=== PATIENT | male | born 1985 | race Caucasian/White ===

== ENCOUNTER 2017-09-08 13:31 | Emergency (ER) | payer OTHER ==
[~2017-09-08] VITALS: Ht 170.2 cm; Wt 65.8 kg
[~2017-09-08 13:31] MED LIST: ALBU90OI INH; CEPH500 PO; CIPRO500 MG PO; CLON.1 PO; CODGUAEL PO; CYCL10 PO; Crutch1 EACH MISC; HYDACE10B PO; HYDACE5 PO; Naprosyn500 MG PO; Norco 10-325 T1 EACH PO; OMEP20ER PO; OXYACE5T PO; OXYACE7.5T PO; PRED10 PO; RXCEPH500 PO; RXOXYACE PO; Ultram50 MG PO
[2017-09-08] MEDS ORDERED: Norco 5-325 Ta1 EACH PO (15:00)
[2017-09-08] MEDS ORDERED: Lotrimin Ultra12 GM TOP (15:00)
[2018-07-04] MEDS ORDERED: CLOTRIMAZOLE AF TOP (00:15)
== END 2017-09-08 15:45 | disposition home or self-care (01) ==
LOC: ER 13:31
DX: T33.832A Superficial frostbite of left toe(s), initial encounter (principal); T33.831A Superficial frostbite of right toe(s), initial encounter; X31.XXXA Exposure to excessive natural cold, initial encounter; F17.200 Nicotine dependence, unspecified, uncomplicated
CPT/HCPCS: 73630; 99283

== ENCOUNTER 2017-09-16 16:27 | Emergency (ER) | payer OTHER ==
[~2017-09-16] VITALS: Ht 170.2 cm; Wt 65.8 kg
[~2017-09-16 16:27] MED LIST changes: +Lotrimin Ultra12 GM TOP; +Norco 5-325 Ta1 EACH PO
[2017-09-16] MEDS ORDERED: Lotrimin Ultra12 GM EXT (18:56)
[2017-09-16] MEDS ORDERED: NAPR550 PO (18:56)
[2017-09-16] MEDS ORDERED: Crutch1 EACH MISC (19:20)
[2018-07-04] MEDS ORDERED: CLOTRIMAZOLE AF TOP (00:15)
== END 2017-09-16 19:15 | disposition home or self-care (01) ==
LOC: ER 16:27
DX: B35.3 Tinea pedis (principal); M79.672 Pain in left foot; M79.671 Pain in right foot; Z79.899 Other long term (current) drug therapy; F17.200 Nicotine dependence, unspecified, uncomplicated
CPT/HCPCS: 99283

== ENCOUNTER 2018-03-26 09:03 | Emergency (ER) | payer OTHER ==
[~2018-03-26] VITALS: Ht 170.2 cm; Wt 63.5 kg
[~2018-03-26 09:03] MED LIST changes: +Lotrimin Ultra12 GM EXT; +NAPR550 PO
[2018-03-26] MEDS ORDERED: Vibramycin100 MG PO (09:15)
== END 2018-03-26 09:48 | disposition home or self-care (01) ==
LOC: ER 09:03
DX: S70.361A Insect bite (nonvenomous), right thigh, initial encounter (principal); W57.XXXA Bitten or stung by nonvenomous insect and other nonvenomous arthropods, initial encounter; Z79.2 Long term (current) use of antibiotics; F17.200 Nicotine dependence, unspecified, uncomplicated
CPT/HCPCS: 99281

== ENCOUNTER 2019-07-23 05:29 | Emergency (ER) | payer OTHER ==
[~2019-07-23] VITALS: Ht 170.2 cm; Wt 65.8 kg
[~2019-07-23 05:29] MED LIST changes: +CLOTRIMAZOLE AF TOP; +Vibramycin100 MG PO
== END 2019-07-23 07:19 | disposition home or self-care (01) ==
LOC: ER 05:29
DX: S01.81XA Laceration without foreign body of other part of head, initial encounter (principal); W22.8XXA Striking against or struck by other objects, initial encounter
CPT/HCPCS: 12011; 70450; 90471; 90714; 99283-25

== ENCOUNTER 2020-12-19 11:55 | Emergency (ER) | payer OTHER ==
[~2020-12-19] VITALS: Ht 170.2 cm; Wt 72.6 kg
== END 2020-12-19 12:21 | disposition home or self-care (01) ==
LOC: ER 11:55
DX: L98.8 Other specified disorders of the skin and subcutaneous tissue (principal); F17.210 Nicotine dependence, cigarettes, uncomplicated
CPT/HCPCS: 99283

== ENCOUNTER 2021-05-17 11:57 | Observation (INO) | payer OTHER ==
[~2021-05-17] VITALS: Ht 170.2 cm; Wt 66.7 kg
[2021-05-17 14:01] LABS: BASOPHILS ABSOLUTE AUTO 0.05 K/mm3 (0.00-0.23); BASOPHILS PERCENT AUTO 1 % (0-2); EOSINOPHILS ABSOLUTE AUTO 0.13 K/mm3 (0.00-0.68); EOSINOPHILS PERCENT AUTO 2 % (0-6); Hematocrit 43.4 % (37.0-53.0); Hemoglobin 14.9 g/dL (13.5-17.5); IMMATURE GRAN ABSOLUTE AUTO 0.02 K/mm3 (0.00-0.10); IMMATURE GRAN PERCENT AUTO 0 % (0-1); LYMPHOCYTES ABSOLUTE AUTO 1.72 K/mm3 (0.84-5.20); LYMPHOCYTES PERCENT AUTO 23 % (21-46); MONOCYTES ABSOLUTE AUTO 0.51 K/mm3 (0.16-1.47); MONOCYTES PERCENT AUTO 7 % (4-13); Mean Corpuscular HGB 30.3 pg (26.0-34.0); Mean Corpuscular HGB Conc 34.3 g/dL (31.5-36.5); Mean Corpuscular Volume 88 fL (80-100); Mean Platelet Volume 8.4 fL (9.1-12.4); NEUTROPHILS ABSOLUTE AUTO 5.14 K/mm3 (1.96-9.15); NEUTROPHILS PERCENT AUTO 68 % (41-73); Platelet Count 341 K/mm3 (150-400); RDW Coefficient Variation 12.1 % (11.7-14.2); RDW Standard Deviation 39.4 fL (35.1-46.3); Red Blood Cell Count 4.92 M/mm3 (4.30-5.90); White Blood Cell Count 7.57 K/mm3 (4.00-11.30)
[2021-05-17 14:25] LABS: International Normalized Ratio 1.11; Prothrombin Time Results 11.9 Sec (9.7-11.5)
[2021-05-17 14:31] LABS: Alanine Aminotransfer (ALT/SGP 18 U/L (12-78); Albumin, Blood 3.2 g/dL (3.4-5.0); Albumin/Globulin Ratio 0.8 (0.8-1.8); Alk Phos 91 U/L (50-136); Anion Gap 5 mmol/L (6-16); Aspartate Aminotrans (AST/SGOT 22 U/L (12-37); Bilirubin, Total 0.5 mg/dL (0.1-1.0); Blood Urea Nitrogen 8 mg/dL (8-24); Bun/Creatinine Ratio 9.4 (12.0-20.0); CO2, Blood 30 mmol/L (21-32); Calcium, Blood 8.8 mg/dL (8.5-10.1); Chloride, Blood 100 mmol/L (98-108); Creatinine, Blood 0.85 mg/dL (0.60-1.20); Globulin, Blood 4.2 g/dL (2.2-4.0); Glomerular Filtration Rate >60 (60-); Glucose, Blood 88 mg/dL (70-99); Potassium, Blood 3.5 mmol/L (3.5-5.5); Sodium, Blood 135 mmol/L (136-145); Total Protein, Blood 7.4 g/dL (6.4-8.2)
[2021-05-17] MEDS ORDERED: CARB100ER PO (17:32)
[2021-05-17] MEDS ORDERED: SYNTHROID75 MCG PO (17:33)
[2021-05-17 18:58] LABS: SARS-Cov-2 (COVID-19) PCR, MMC NEGATIVE (NEGATIVE)
[2021-05-18 05:08] LABS: Alanine Aminotransfer (ALT/SGP 46 U/L (12-78); Albumin, Blood 3.1 g/dL (3.4-5.0); Albumin/Globulin Ratio 0.8 (0.8-1.8); Alk Phos 151 U/L (50-136); Anion Gap 5 mmol/L (6-16); Aspartate Aminotrans (AST/SGOT 57 U/L (12-37); Bilirubin, Total 0.6 mg/dL (0.1-1.0); Blood Urea Nitrogen 9 mg/dL (8-24); Bun/Creatinine Ratio 11.5 (12.0-20.0); CO2, Blood 30 mmol/L (21-32); Calcium, Blood 8.1 mg/dL (8.5-10.1); Chloride, Blood 101 mmol/L (98-108); Creatinine, Blood 0.79 mg/dL (0.60-1.20); Globulin, Blood 3.8 g/dL (2.2-4.0); Glomerular Filtration Rate >60 (60-); Glucose, Blood 89 mg/dL (70-99); Potassium, Blood 3.2 mmol/L (3.5-5.5); Sodium, Blood 136 mmol/L (136-145); Total Protein, Blood 6.9 g/dL (6.4-8.2)
--- NOTE | 2021-05-18 05:43 | NUR ---
PT IS ALERT AND ORIENTED X4, PAIN 9/10 TREATED PER EMAR THIS SHIFT, NPO OF MIDNIGHT AND NOT ABLE TO BEAR WEIGHT ON R LEG, NO OTHER COMPLAINTS NOTED. STAFF WILL CONT TO MONITOR.
--- NOTE | 2021-05-18 09:41 | NUR ---
DR SOUZA IN TO SEE PT THIS AM, NO ORDERS FOR CARDIOLOGY NOTED. HE REPORTS PT NEEDS A CT PE STUDY TO R/O PE DUE TO DVT. SPOKE WITH DR THOMPSON WHO REPORTS HE DOES NOT WANT A CARDIOLOGY CONSULT PT SEEING INTERVENTIONAL RADIOLOGY AND GOING FOR A THROMBECTOMY THIS AM. PER DR THOMPSON NO CT PE STUDY OR EKG. ALSO SPOKE WITH [facility] [place] WHO SPOKE WITH DR SY WHO ALSO REPORTS HE DID NOT CONSULT CARDIOLOGY. DR SOUZA NOTIFIED OF NO CARDIOLOGY CONSULT.
--- NOTE | 2021-05-18 17:48 | NUR ---
PT REMAINS ON HEP DRIP. THROMBECTOMY RESCHEDULED DUE TO SIZE. PT TOLERATING FOOD. COMPLAINS OF PAIN TO RIGHT LEG, MEDICATED PER EMAR. CALL LIGHT WITHIN REACH.
[2021-05-19 08:22] LABS: Anion Gap 5 mmol/L (6-16); Blood Urea Nitrogen 7 mg/dL (8-24); CO2, Blood 30 mmol/L (21-32); Calcium, Blood 8.5 mg/dL (8.5-10.1); Chloride, Blood 100 mmol/L (98-108); Creatinine, Blood 0.78 mg/dL (0.60-1.20); Glomerular Filtration Rate >60 (60-); Glucose, Blood 75 mg/dL (70-99); Potassium, Blood 3.3 mmol/L (3.5-5.5); Sodium, Blood 135 mmol/L (136-145)
[2021-05-19] MEDS ORDERED: ELIQUIS5 M2 PO ×2 (10:28→11:13)
[2021-05-19] MEDS ORDERED: HYDACE10B PO (10:29)
--- NOTE | 2021-05-19 13:43 | NUR ---
PT DISCHARGED THE PT VERBALIZED UNDERSTANDING OF THE DC INSTRUCTIONS. THE PTS WAS HANDED A PRESCRIPTION FOR [place] AND A VOUCHER FOR ELIQUIS TO TAKE TO [facility]. THE PT WAS REMINDED TO FOLLOW UP ON FRIDAY WITH HIS PCP. THE PT WAS TRANSFERED VIA WHEELCHAIR TO THE FRONT TO MEET HIS RIDE ACOMPANIED BY THE QUALITY CONTROL MICROBIOLOGY SUPERVISOR
== END 2021-05-19 13:05 | disposition home or self-care (01) ==
LOC: ER 11:57 → MEDS 11:58 → ERHOLD 11:58 → MEDS 11:59 → ER 17:06 → ERHOLD 17:06 → MEDS 17:06 → ERHOLD 21:00 → MEDS 21:00
PROVIDERS: Internal Medicine; Physician Assistant; ADMIT Hospitalist
DX: I82.220 Acute embolism and thrombosis of inferior vena cava (principal); I82.411 Acute embolism and thrombosis of right femoral vein; I82.421 Acute embolism and thrombosis of right iliac vein; I82.431 Acute embolism and thrombosis of right popliteal vein; I82.441 Acute embolism and thrombosis of right tibial vein; I82.451 Acute embolism and thrombosis of right peroneal vein; I82.491 Acute embolism and thrombosis of other specified deep vein of right lower extremity; E03.9 Hypothyroidism, unspecified; F39 Unspecified mood [affective] disorder; F17.200 Nicotine dependence, unspecified, uncomplicated; Z20.822 Contact with and (suspected) exposure to COVID-19
CPT/HCPCS: 36415; 71260; 73552; 74177; 76937; 80048; 80053; 84443; 85014; 85018; 85025; 85347; 85610; 85730; 86850; 86900; 86901; 93005; 93010; 93926; 93971; 96365; 96375; 96376; 97110; 97162; 99152; 99153; 99285-25; A9270; C1769; C1887; C1894; J1644; J2250; J2270; J2405; J3010; J7030; J7050; Q9967; U0004

== ENCOUNTER 2022-10-10 06:16 | Emergency (ER) | payer OTHER ==
[~2022-10-10] VITALS: Ht 167.6 cm; Wt 65.8 kg
[~2022-10-10 06:16] MED LIST changes: +CARB100ER PO; +ELIQUIS5 M2 PO; +SYNTHROID75 MCG PO
[2022-10-10] MEDS ORDERED: Lamictal200 MG PO (06:31)
[2022-10-10] MEDS ORDERED: CLON2 PO (06:32)
[2022-10-10] MEDS ORDERED: OLAN2.5 PO (06:32)
== END 2022-10-10 08:30 | disposition home or self-care (01) ==
LOC: ER 06:16
DX: R22.32 Localized swelling, mass and lump, left upper limb (principal); E03.9 Hypothyroidism, unspecified; F17.210 Nicotine dependence, cigarettes, uncomplicated; Z86.718 Personal history of other venous thrombosis and embolism; Z86.711 Personal history of pulmonary embolism
CPT/HCPCS: 36415; 85379; 93971; 99284-25

== ENCOUNTER 2024-10-04 10:11 | Emergency (ER) | payer OTHER ==
[~2024-10-04] VITALS: Ht 170.2 cm; Wt 56.7 kg
[~2024-10-04 10:11] MED LIST changes: +CLON2 PO; +Lamictal200 MG PO; +OLAN2.5 PO
[2024-10-04 10:49] LABS: BASOPHILS ABSOLUTE AUTO 0.03 K/mm3 (0.00-0.23); BASOPHILS PERCENT AUTO 1 % (0-2); EOSINOPHILS PERCENT AUTO 2 % (0-6); Hematocrit 46.5 % (37.0-53.0); IMMATURE GRAN ABSOLUTE AUTO 0.01 K/mm3 (0.00-0.10); IMMATURE GRAN PERCENT AUTO 0 % (0-1); LYMPHOCYTES PERCENT AUTO 36 % (21-46); MONOCYTES ABSOLUTE AUTO 0.32 K/mm3 (0.16-1.47); MONOCYTES PERCENT AUTO 6 % (4-13); Mean Corpuscular HGB 30.1 pg (26.0-34.0); Mean Corpuscular HGB Conc 34.4 g/dL (31.5-36.5); Mean Corpuscular Volume 87 fL (80-100); Mean Platelet Volume 8.7 fL (9.1-12.4); NEUTROPHILS ABSOLUTE AUTO 3.18 K/mm3 (1.96-9.15); NEUTROPHILS PERCENT AUTO 56 % (41-73); Platelet Count 267 K/mm3 (150-400); RDW Coefficient Variation 12.8 % (11.7-14.2); RDW Standard Deviation 40.8 fL (35.1-46.3); Red Blood Cell Count 5.32 M/mm3 (4.30-5.90); White Blood Cell Count 5.64 K/mm3 (4.00-11.30)
[2024-10-04 11:01] LABS: Albumin, Blood 3.6 g/dL (3.4-5.0); Bilirubin, Total 0.3 mg/dL (0.1-1.0); Bun/Creatinine Ratio 8.9 (12.0-20.0); Calcium, Blood 9.2 mg/dL (8.5-10.1); Creatinine, Blood 0.79 mg/dL (0.60-1.20); Globulin, Blood 3.5 g/dL (2.2-4.0); Magnesium, Blood 2.2 mg/dL (1.6-2.4); Potassium, Blood 3.6 mmol/L (3.5-5.5); Total Protein, Blood 7.1 g/dL (6.4-8.2)
[2024-10-04] MEDS ORDERED: Ketorolac Tromethamine 15mg Vial IV ONE (11:45)
[2024-10-04] MEDS ORDERED: Acetaminophen 325 MG TABLET PO ONE (11:50)
[2024-10-04] MEDS ORDERED: IBUP600 PO (12:36)
[2024-10-04 13:45] VITALS: BP 123/95
== END 2024-10-04 13:56 | disposition home or self-care (01) ==
LOC: ER 10:11
PROVIDERS: Student in an Organized Health Care Education/Training Program
DX: T69.1XXA Chilblains, initial encounter (principal); E03.9 Hypothyroidism, unspecified; F17.200 Nicotine dependence, unspecified, uncomplicated; Z59.02 Unsheltered homelessness; Z79.890 Hormone replacement therapy; Z79.899 Other long term (current) drug therapy; X31.XXXA Exposure to excessive natural cold, initial encounter
CPT/HCPCS: 80053; 80320; 83735; 84484; 85025; 93005; 93010; 96374; 99285-25; A9270; J1885

== ENCOUNTER 2024-12-26 19:45 | Emergency (ER) | payer OTHER ==
[~2024-12-26] VITALS: Ht 167.6 cm; Wt 72.6 kg
[~2024-12-26 19:45] MED LIST changes: +IBUP600 PO
[2024-12-26 21:11] LABS: BASOPHILS ABSOLUTE AUTO 0.04 K/mm3 (0.00-0.23); BASOPHILS PERCENT AUTO 1 % (0-2); EOSINOPHILS ABSOLUTE AUTO 0.28 K/mm3 (0.00-0.68); EOSINOPHILS PERCENT AUTO 4 % (0-6); Hematocrit 40.2 % (37.0-53.0); Hemoglobin 13.8 g/dL (13.5-17.5); IMMATURE GRAN ABSOLUTE AUTO 0.04 K/mm3 (0.00-0.10); IMMATURE GRAN PERCENT AUTO 1 % (0-1); LYMPHOCYTES ABSOLUTE AUTO 3.04 K/mm3 (0.84-5.20); LYMPHOCYTES PERCENT AUTO 43 % (21-46); MONOCYTES PERCENT AUTO 7 % (4-13); Mean Corpuscular HGB 30.1 pg (26.0-34.0); Mean Corpuscular HGB Conc 34.3 g/dL (31.5-36.5); Mean Corpuscular Volume 88 fL (80-100); Mean Platelet Volume 8.1 fL (9.1-12.4); NEUTROPHILS ABSOLUTE AUTO 3.22 K/mm3 (1.96-9.15); NEUTROPHILS PERCENT AUTO 45 % (41-73); Platelet Count 292 K/mm3 (150-400); RDW Coefficient Variation 13.4 % (11.7-14.2); RDW Standard Deviation 42.8 fL (35.1-46.3); Red Blood Cell Count 4.59 M/mm3 (4.30-5.90); White Blood Cell Count 7.12 K/mm3 (4.00-11.30)
[2024-12-26 21:35] LABS: Albumin, Blood 3.5 g/dL (3.4-5.0); Albumin/Globulin Ratio 1.1 (0.8-1.8); Bilirubin, Total 0.1 mg/dL (0.1-1.0); Calcium, Blood 8.5 mg/dL (8.5-10.1); Creatinine, Blood 0.62 mg/dL (0.60-1.20); Globulin, Blood 3.1 g/dL (2.2-4.0); Potassium, Blood 3.5 mmol/L (3.5-5.5); Total Protein, Blood 6.6 g/dL (6.4-8.2)
[2024-12-26 22:25] VITALS: BP 121/79
[2024-12-26] MEDS ORDERED: Ketorolac Tromethamine 15mg Vial IV ONE (22:35)
[2024-12-26] MEDS ORDERED: NS 1,000 ML IV SCH ×2 (22:35→22:40)
[2024-12-26] MEDS ORDERED: Gabapentin 300 MG Cap PO ONE (22:40)
[2024-12-27] MEDS ORDERED: IBUP600 PO (00:06)
[2024-12-27] MEDS ORDERED: ACET500 PO (00:06)
== END 2024-12-27 00:14 | disposition home or self-care (01) ==
LOC: ER 19:45
PROVIDERS: Student in an Organized Health Care Education/Training Program
DX: R10.13 Epigastric pain (principal); G62.9 Polyneuropathy, unspecified; E03.9 Hypothyroidism, unspecified; F17.200 Nicotine dependence, unspecified, uncomplicated; Z79.890 Hormone replacement therapy; Z79.899 Other long term (current) drug therapy; Z59.00 Homelessness unspecified
CPT/HCPCS: 71046; 80053; 83690; 84484; 85025; 93005; 93010; 96374; 99285-25; A9270; J1885

== ENCOUNTER 2025-01-19 23:54 | Emergency (ER) | payer OTHER ==
[~2025-01-19] VITALS: Ht 167.6 cm; Wt 54.4 kg
[~2025-01-19 23:54] MED LIST changes: +ACET500 PO
[2025-01-19 23:57] VITALS: BP 128/92
[2025-01-20] MEDS ORDERED: Acetaminophen 500 MG Tab PO ONE (01:30)
== END 2025-01-20 02:28 | disposition home or self-care (01) ==
LOC: ER 23:54
DX: M79.662 Pain in left lower leg (principal); E03.9 Hypothyroidism, unspecified; F17.200 Nicotine dependence, unspecified, uncomplicated; Z79.899 Other long term (current) drug therapy
CPT/HCPCS: 73590; 99283-25; A9270

== ENCOUNTER 2025-03-03 00:47 | Emergency (ER) | payer OTHER ==
[~2025-03-03] VITALS: Ht 165.1 cm; Wt 54.4 kg
[2025-03-03 01:08] LABS: BASOPHILS ABSOLUTE AUTO 0.03 K/mm3 (0.00-0.23); BASOPHILS PERCENT AUTO 1 % (0-2); EOSINOPHILS ABSOLUTE AUTO 0.25 K/mm3 (0.00-0.68); EOSINOPHILS PERCENT AUTO 5 % (0-6); Hematocrit 39.2 % (37.0-53.0); Hemoglobin 12.9 g/dL (13.5-17.5); IMMATURE GRAN ABSOLUTE AUTO 0.01 K/mm3 (0.00-0.10); IMMATURE GRAN PERCENT AUTO 0 % (0-1); LYMPHOCYTES ABSOLUTE AUTO 2.47 K/mm3 (0.84-5.20); LYMPHOCYTES PERCENT AUTO 45 % (21-46); MONOCYTES ABSOLUTE AUTO 0.41 K/mm3 (0.16-1.47); MONOCYTES PERCENT AUTO 7 % (4-13); Mean Corpuscular HGB 30.1 pg (26.0-34.0); Mean Corpuscular HGB Conc 32.9 g/dL (31.5-36.5); Mean Corpuscular Volume 92 fL (80-100); Mean Platelet Volume 8.5 fL (9.1-12.4); NEUTROPHILS ABSOLUTE AUTO 2.35 K/mm3 (1.96-9.15); NEUTROPHILS PERCENT AUTO 43 % (41-73); Platelet Count 226 K/mm3 (150-400); RDW Coefficient Variation 13.5 % (11.7-14.2); RDW Standard Deviation 45.9 fL (35.1-46.3); Red Blood Cell Count 4.28 M/mm3 (4.30-5.90); White Blood Cell Count 5.52 K/mm3 (4.00-11.30)
[2025-03-03 01:26] LABS: Albumin, Blood 3.9 g/dL (3.4-5.0); Albumin/Globulin Ratio 1.5 (0.8-1.8); Bilirubin, Total 0.5 mg/dL (0.1-1.0); Calcium, Blood 8.4 mg/dL (8.5-10.1); Creatinine, Blood 0.72 mg/dL (0.60-1.20); Globulin, Blood 2.6 g/dL (2.2-4.0); Potassium, Blood 3.6 mmol/L (3.5-5.5); Total Protein, Blood 6.5 g/dL (6.4-8.2)
[2025-03-03 02:00] VITALS: BP 118/73
== END 2025-03-03 02:53 | disposition home or self-care (01) ==
LOC: ER 00:47
PROVIDERS: Emergency Medicine
DX: R07.89 Other chest pain (principal); F17.200 Nicotine dependence, unspecified, uncomplicated; E03.9 Hypothyroidism, unspecified; Z79.899 Other long term (current) drug therapy
CPT/HCPCS: 71046; 80053; 84484; 85025; 93005; 93010; 99285-25

== ENCOUNTER 2025-03-14 00:45 | Emergency (ER) | payer OTHER ==
[~2025-03-14] VITALS: Ht 175.3 cm; Wt 54.4 kg
[2025-03-14 00:54] VITALS: BP 109/91
[2025-03-14 01:13] LABS: BASOPHILS ABSOLUTE AUTO 0.04 K/mm3 (0.00-0.23); BASOPHILS PERCENT AUTO 1 % (0-2); EOSINOPHILS ABSOLUTE AUTO 0.23 K/mm3 (0.00-0.68); EOSINOPHILS PERCENT AUTO 4 % (0-6); Hematocrit 41.3 % (37.0-53.0); Hemoglobin 13.7 g/dL (13.5-17.5); IMMATURE GRAN ABSOLUTE AUTO 0.02 K/mm3 (0.00-0.10); IMMATURE GRAN PERCENT AUTO 0 % (0-1); LYMPHOCYTES ABSOLUTE AUTO 2.64 K/mm3 (0.84-5.20); LYMPHOCYTES PERCENT AUTO 45 % (21-46); MONOCYTES ABSOLUTE AUTO 0.37 K/mm3 (0.16-1.47); MONOCYTES PERCENT AUTO 6 % (4-13); Mean Corpuscular HGB Conc 33.2 g/dL (31.5-36.5); Mean Corpuscular Volume 91 fL (80-100); NEUTROPHILS ABSOLUTE AUTO 2.59 K/mm3 (1.96-9.15); NEUTROPHILS PERCENT AUTO 44 % (41-73); NRBC ABSOLUTE 0.00 K/mm3 (0.00-0.02); NRBC Auto 0.0 /100 WBC (0.0-0.2); Platelet Count 239 K/mm3 (150-400); RDW Coefficient Variation 13.4 % (11.7-14.2); RDW Standard Deviation 45.3 fL (35.1-46.3)
[2025-03-14 01:34] LABS: Alanine Aminotransfer (ALT/SGP 21.0 U/L (12-78); Albumin, Blood 3.7 g/dL (3.4-5.0); Albumin/Globulin Ratio 1.2 (0.8-1.8); Anion Gap 7.0 mmol/L (3-11); Aspartate Aminotrans (AST/SGOT 13.0 U/L (12-37); Bilirubin, Total 0.1 mg/dL (0.1-1.0); Blood Urea Nitrogen 17.0 mg/dL (8-24); CO2, Blood 27.0 mmol/L (21-32); Calcium, Blood 8.7 mg/dL (8.5-10.1); Chloride, Blood 111.0 mmol/L (98-108); Creatinine, Blood 0.95 mg/dL (0.60-1.20); Globulin, Blood 3.1 g/dL (2.2-4.0); Glucose, Blood 95.0 mg/dL (70-99); Potassium, Blood 3.8 mmol/L (3.5-5.5); Sodium, Blood 141.0 mmol/L (136-145); Total Protein, Blood 6.8 g/dL (6.4-8.2)
== END 2025-03-14 07:49 | disposition left against medical advice (07) ==
LOC: ER 00:45
PROVIDERS: Emergency Medicine
DX: R06.02 Shortness of breath (principal); R07.9 Chest pain, unspecified; Z53.21 Procedure and treatment not carried out due to patient leaving prior to being seen by health care provider
CPT/HCPCS: 80053; 83690; 84484; 85025

== ENCOUNTER 2025-03-15 22:55 | Emergency (ER) | payer OTHER ==
[~2025-03-15] VITALS: Ht 165.1 cm; Wt 54.4 kg
[2025-03-15 23:08] VITALS: BP 112/80
[2025-03-15 23:22] LABS: BASOPHILS ABSOLUTE AUTO 0.04 K/mm3 (0.00-0.23); BASOPHILS PERCENT AUTO 1 % (0-2); EOSINOPHILS ABSOLUTE AUTO 0.18 K/mm3 (0.00-0.68); EOSINOPHILS PERCENT AUTO 3 % (0-6); Hematocrit 37.1 % (37.0-53.0); Hemoglobin 12.6 g/dL (13.5-17.5); IMMATURE GRAN ABSOLUTE AUTO 0.02 K/mm3 (0.00-0.10); IMMATURE GRAN PERCENT AUTO 0 % (0-1); LYMPHOCYTES ABSOLUTE AUTO 2.74 K/mm3 (0.84-5.20); LYMPHOCYTES PERCENT AUTO 45 % (21-46); MONOCYTES ABSOLUTE AUTO 0.34 K/mm3 (0.16-1.47); MONOCYTES PERCENT AUTO 6 % (4-13); Mean Corpuscular HGB Conc 34.0 g/dL (31.5-36.5); Mean Corpuscular Volume 89 fL (80-100); NEUTROPHILS ABSOLUTE AUTO 2.77 K/mm3 (1.96-9.15); NEUTROPHILS PERCENT AUTO 45 % (41-73); NRBC ABSOLUTE 0.00 K/mm3 (0.00-0.02); NRBC Auto 0.0 /100 WBC (0.0-0.2); Platelet Count 226 K/mm3 (150-400); RDW Coefficient Variation 13.4 % (11.7-14.2); RDW Standard Deviation 44.2 fL (35.1-46.3)
[2025-03-15 23:45] LABS: Alanine Aminotransfer (ALT/SGP 21.0 U/L (12-78); Albumin, Blood 3.7 g/dL (3.4-5.0); Albumin/Globulin Ratio 1.3 (0.8-1.8); Anion Gap 5.0 mmol/L (3-11); Aspartate Aminotrans (AST/SGOT 17.0 U/L (12-37); Bilirubin, Total 0.1 mg/dL (0.1-1.0); Blood Urea Nitrogen 14.0 mg/dL (8-24); CO2, Blood 28.0 mmol/L (21-32); Calcium, Blood 8.4 mg/dL (8.5-10.1); Chloride, Blood 111.0 mmol/L (98-108); Creatinine, Blood 1.11 mg/dL (0.60-1.20); Globulin, Blood 2.9 g/dL (2.2-4.0); Glucose, Blood 100.0 mg/dL (70-99); Potassium, Blood 3.9 mmol/L (3.5-5.5); Sodium, Blood 140.0 mmol/L (136-145); Total Protein, Blood 6.6 g/dL (6.4-8.2)
== END 2025-03-16 00:49 | disposition home or self-care (01) ==
LOC: ER 22:55
PROVIDERS: Emergency Medicine
DX: R07.89 Other chest pain (principal); T73.0XXA Starvation, initial encounter; E03.9 Hypothyroidism, unspecified; F17.200 Nicotine dependence, unspecified, uncomplicated; Z86.718 Personal history of other venous thrombosis and embolism; Z59.00 Homelessness unspecified; Z79.890 Hormone replacement therapy; Z79.899 Other long term (current) drug therapy; Z59.89 Other problems related to housing and economic circumstances; X58.XXXA Exposure to other specified factors, initial encounter
CPT/HCPCS: 71046; 80053; 84484; 85025; 93005; 93010; 99284-25